=== PATIENT | female | born 1970 | race Caucasian/White ===

== ENCOUNTER 2022-06-22 13:46 | Emergency (ER) | payer OTHER ==
[~2022-06-22] VITALS: Ht 154.9 cm; Wt 59.9 kg
[2022-06-22] MEDS ORDERED: SODIUM CHLORIDE 0.9% 1000ML 1,000 ML IV STA (13:58)
[2022-06-22 14:14] LABS: BASOPHILS # (AUTO) 0.1 (0.0-0.1); BASOPHILS % 0.4 % (0.0-1.0); EOSINOPHILS % 0.3 % (0.0-6.0); HEMATOCRIT 38.5 % (34.2-44.1); HEMOGLOBIN 12.6 g/dL (12.0-16.0); LYMPHOCYTES % 7.9 % (18.0-39.1); MEAN CORPUSCULAR HEMOGLOBIN 30.8 pg (28-32); MEAN CORPUSCULAR HGB CONC 32.7 g/dL (31-35); MEAN CORPUSCULAR VOLUME 94.1 fL (81-99); MONOCYTES # (AUTO) 1.3 (0.2-0.8); MONOCYTES % 9.8 % (4.4-11.3); NEUTROPHILS # (AUTO) 10.8 (2.1-6.9); NEUTROPHILS % 81.3 % (38.7-80.0); PLATELET COUNT 226 x10e3/uL (140-360); RED BLOOD COUNT 4.09 x10e6/uL (3.6-5.1); RED CELL DISTRIBUTION WIDTH 12.2 % (11.7-14.4)
[2022-06-22 14:41] LABS: ALBUMIN 3.6 g/dL (3.5-5.0); ALBUMIN/GLOBULIN RATIO 0.9 (0.8-2.0); ANION GAP 15.3 mmol/L (8-16); CALCIUM 9.7 mg/dL (8.4-10.2); POTASSIUM 3.3 mmol/L (3.5-5.1)
[2022-06-22 14:43] LABS: COLOR,URINE YELLOW (YELLOW)
[2022-06-22 14:44] LABS: CLARITY,URINE SL CLOUDY (CLEAR); KETONES,URINE NEGATIVE (NEGATIVE); LEUKOCYTE ESTERASE ,URINE TRACE (NEGATIVE); NITRITE,URINE NEGATIVE (NEGATIVE); PROTEIN,URINE DIPSTICK NEGATIVE (NEGATIVE); URINE UROBILINOGEN 0.2 mg/dL (0.2 - 1)
[2022-06-22 14:54] LABS: BACTERIA,URINE FEW /HPF; EPITHELIAL CELLS,URINE MANY /LPF; WBC,URINE (MAN) 0-5 /HPF (0-5)
[2022-06-22 14:55] LABS: CREATININE, SERUM 0.75 mg/dL (0.57-1.11)
[2022-06-22] MEDS ORDERED: IOPAMIDOL 370 MG/ML 100 ML INFUS..BTL INJ ONE (15:21)
[2022-06-22] MEDS ORDERED: Morphine 4mg INJECTION 4 MG/ML INJ IV ONE (16:30)
[2022-06-22] MEDS ORDERED: ONDANSETRON HCL INJ 2MG/ML 2ML 2 MG/ML VIAL IV NR (16:30)
[2022-06-22] MEDS ORDERED: METRONIDAZOLE500 MG PO (17:08)
[2022-06-22] MEDS ORDERED: CIPRO500 MG PO (17:08)
[2022-06-22] MEDS ORDERED: ACETAMINOPHEN-1 EAC4 PO ×2 (17:08→17:41)
[2022-06-22] MEDS ORDERED: ONDANSETRON ODT4 MG PO (17:08)
[2022-06-22 17:11] VITALS: BP 118/82
== END 2022-06-22 17:16 | disposition home or self-care (01) ==
LOC: ER 14:04
DX: R10.31 Right lower quadrant pain (principal); K51.20 Ulcerative (chronic) proctitis without complications; K59.00 Constipation, unspecified
CPT/HCPCS: 36415; 74177; 80053; 81001; 85025; 99284; J2270; J2405; J7030; Q9967